=== PATIENT | female | born 1950 | race Caucasian/White ===

== ENCOUNTER → 2017-10-24 | Outpatient (CLI) | payer MEDICARE ==
--- NOTE | 2017-10-25 07:15 | MM ---
Reason for exam: screening (asymptomatic). Last mammogram was performed 1 year and 2 months ago. History: Patient is postmenopausal. Family history of breast cancer in mother at age 93. 2 benign cyst aspirations of the left breast. Benign cyst aspiration of the right breast. Took estrogen for 8 years 2 months beginning at age 55. Took progesterone for 8 years 2 months beginning at age 55. Physical Findings: A clinical breast exam by your physician is recommended on an annual basis and results should be correlated with mammographic findings. MG 3D Screening Mammo W/Cad Bilateral CC and MLO view(s) were taken. Prior study comparison: August 31, 2016, bilateral MG 3d screening mammo w/cad. August 13, 2015, bilateral MG 3d screening mammo w/cad. May 22, 2014, left breast MG diagnostic mammo LT w CAD. The breast tissue is heterogeneously dense. This may lower the sensitivity of mammography. Finding: There are typically benign vascular calcifications in both breasts. There is no discrete abnormality. ASSESSMENT: Benign, BI-RAD 2 RECOMMENDATION: Routine screening mammogram of both breasts in 1 year.
== END ==
LOC: RADMAMWWP 10:04
PROVIDERS: ATTEND Family Medicine
DX: Z12.31 Encounter for screening mammogram for malignant neoplasm of breast (principal)
CPT/HCPCS: 77063; 77067

== ENCOUNTER → 2018-01-12 | Outpatient (CLI) | payer MEDICARE, BC ==
--- NOTE | 2018-01-12 15:11 | MR ---
EXAMINATION TYPE: MR brain wo/w con DATE OF EXAM: 01/12/2018 COMPARISON: 09/01/2015 HISTORY: Abnormal findings on diagnostic imaging CONTRAST: Performed utilizing 6 mL intravenous Gadavist gadolinium contrast. TECHNIQUE: Multiplanar, multiecho imaging on a 3.0 Lakeisha magnet is performed through the brain. Stud y is performed within 24 hours of arrival to the hospital. The craniovertebral junction is normal. The pituitary is normal. Diffusion-weighted imaging is performed. No abnormal hyperintensity is present to suggest an acute i ntracranial infarct or acute ischemic change. There are scattered subcortical white matter changes consistent periventricular white matter changes which are nonspecific but can be related to microvascular ischemic change. These appear similar numbe r although slightly more prominent over the interval. Ventricles and sulci are appropriate for the patient age. No abnormal enhancement is evident. Mucosal thickening is through the bilateral maxillary sinuses. Some mucosal thickening is within ethm oid air cells. Mastoid air cells appear unremarkable. IMPRESSIONS: 1. Slight increase in prominence with a similar number and distribution of deep white matter changes, likely on the basis of chronic white matter ischemic change.
== END ==
LOC: RADMRIMAIN 12:31
PROVIDERS: ATTEND Family Medicine
DX: R90.82 White matter disease, unspecified (principal)
CPT/HCPCS: 82565; 70553; A9581

== ENCOUNTER → 2018-04-26 | Outpatient (CLI) | payer MEDICARE, BC ==
--- NOTE | 2018-04-26 15:38 | XR ---
EXAMINATION TYPE: XR KUB DATE OF EXAM: 04/26/2018 COMPARISON: 07/15/2014 HISTORY: Pain TECHNIQUE: One view abdominal series FINDINGS: The osseous structures are intact. The bowel gas pattern is nonspecific. There is a 1 cm stones within the right renal pelvis. Additional 1 cm stone within the left renal pel vis with adjacent 5 mm calcification. Scoliosis and degenerative change of the spine noted. Calcifications in the pelvis appear vascular. A rthritic change of the hips noted. IMPRESSION: 1. Stable bilateral nephrolithiasis.
== END | disposition home or self-care (01) ==
LOC: RADXRMAIN 15:20
PROVIDERS: ATTEND Urology
DX: N20.0 Calculus of kidney (principal)
CPT/HCPCS: 74018

== ENCOUNTER 2018-08-29 12:28 | Emergency (ER) | payer MEDICARE, BC ==
[2018-08-29] MEDS ORDERED: SODIUM CHLORIDE 0.9% 1,000 ML IV STA (12:42)
--- NOTE | 2018-08-29 12:44 | ED ---
General Adult HPI - General Chief complaint: Abdominal Pain Stated complaint: rt side/abdominal pain Time Seen by Provider: 08/29/18 12:38 Source: patient, RN notes reviewed Mode of arrival: ambulatory Limitations: no limitations - History of Present Illness Initial comments: Patient is a 67-year-old female presented to the emergency room today with a chief complaint of right-sided flank pain that began this morning. Patient does admit that it feels somewhat similar to kidney stone that she's had in the past. She currently rates pain 6/10. Does admit to an episode of nausea vomiting earlier in the day. Denies any other complaints or symptoms at this time. Patient denies any recent fever, chills, shortness of breath, chest pain, back pain, numbness or tingling, headaches or visual changes, or any other complaints. - Related Data Home Medications Medication Instructions Recorded Confirmed Artificial Tears-Hypromellose 1 drop BOTH EYES DAILY 08/29/18 08/29/18 [Artificial Tear Drops] Atorvastatin [Lipitor] 20 mg PO HS 08/29/18 08/29/18 Cholecalciferol [Vitamin D3] 5,000 mg PO DAILY 08/29/18 08/29/18 Citalopram Hydrobromide [CeleXA] 20 mg DENTAL 08/29/18 Ubidecarenone [Co Q-10] 100 mg PO DAILY 08/29/18 08/29/18 Allergies Allergy/AdvReac Type Severity Reaction Status Date / Time Sulfa (Sulfonamide Allergy Rash/Hives Verified 08/29/18 13:12 Antibiotics) Review of Systems ROS Statement: Those systems with pertinent positive or pertinent negative responses have been documented in the HPI. ROS Other: All systems not noted in ROS Statement are negative. Past Medical History Past Medical History: Hypertension History of Any Multi-Drug Resistant Organisms: None Reported Past Surgical History: Bladder Surgery, Joint Replacement, Orthopedic Surgery Past Psychological History: Anxiety, Depression Smoking Status: Never smoker Past Alcohol Use History: Occasional Past Drug Use History: None Reported General Exam - General Exam Comments Initial Comments: General: The patient is awake and alert, in no distress, and does not appear acutely ill. Eye: There is normal conjunctiva bilaterally. No signs of icterus. Ears, nose, mouth and throat: There are moist mucous membranes and no oral lesions. Neck: The neck is supple, there is no tenderness or JVD. Cardiovascular: There is a regular rate and rhythm. No murmur, rub or gallop is appreciated. Respiratory: Lungs are clear to auscultation, respirations are non-labored, breath sounds are equal. No wheezes, stridor, rales, or rhonchi. Gastrointestinal: Soft, non-distended, non-tender abdomen without masses or organomegaly noted. There is no rebound or guarding present. No CVA tenderness. Bowel sounds are unremarkable. Musculoskeletal: Normal ROM, no tenderness. Strength 5/5. Sensation intact. Pulses equal bilaterally 2+. Neurological: A&O x 3. CN II-XII intact, There are no obvious motor or sensory deficits. Coordination appears grossly intact. Speech is normal. Skin: Skin is warm and dry and no rashes or lesions are noted. Psychiatric: Cooperative, appropriate mood & affect, normal judgment. Limitations: no limitations Course Vital Signs 08/29/18 08/29/18 12:30 13:45 Temperature 97.7 F 97.9 F Pulse Rate 78 67 Respiratory 20 16 Rate Blood Pressure 149/87 149/81 O2 Sat by Pulse 98 97 Oximetry Medical Decision Making - Medical Decision Making Patient's labs been reviewed does show 38 red cells. No sign of infection in the urine. Patient's draining blood work unremarkable. Patient's CT abdomen and pelvis does show 1.4 cm UPJ stone on the right. Moderate hydronephrosis. Case discussed with attending physician Dr. Valverde. Patient resting comfortably at this time. No signs of distress. Patient states she does have pain medication at home. She has not needed any medicines here in the emergency room for this and symptoms. Patient will be discharged to follow-up with her urologist tomorrow. She states that she is followed up with Dr. Mehta in the past. - Lab Data Result diagrams: 08/29/18 12:58 08/29/18 12:58 Lab Results 08/29/18 08/29/18 08/29/18 Range/Units 12:58 12:58 12:58 WBC 8.5 (3.8-10.6) k/uL RBC 4.35 (3.80-5.40) m/uL Hgb 13.9 (11.4-16.0) gm/dL Hct 43.0 (34.0-46.0) % MCV 98.9 (80.0-100.0) fL MCH 32.0 (25.0-35.0) pg MCHC 32.4 (31.0-37.0) g/dL RDW 12.4 (11.5-15.5) % Plt Count 209 (150-450) k/uL Neutrophils % 72 % Lymphocytes % 18 % Monocytes % 5 % Eosinophils % 2 % Basophils % 1 % Neutrophils # 6.1 (1.3-7.7) k/uL Lymphocytes # 1.5 (1.0-4.8) k/uL Monocytes # 0.5 (0-1.0) k/uL Eosinophils # 0.2 (0-0.7) k/uL Basophils # 0.1 (0-0.2) k/uL PT (9.0-12.0) sec INR (<1.2) APTT (22.0-30.0) sec Sodium 142 (137-145) mmol/L Potassium 4.1 (3.5-5.1) mmol/L Chloride 108 H (98-107) mmol/L Carbon Dioxide 27 (22-30) mmol/L Anion Gap 7 mmol/L BUN 18 H (7-17) mg/dL Creatinine 0.65 (0.52-1.04) mg/dL Est GFR (CKD-EPI)AfAm >90 (>60 ml/min/1.73 sqM) Est GFR (CKD-EPI)NonAf >90 (>60 ml/min/1.73 sqM) Glucose 106 H (74-99) mg/dL Calcium 9.5 (8.4-10.2) mg/dL Total Bilirubin 0.6 (0.2-1.3) mg/dL AST 33 (14-36) U/L ALT 37 (9-52) U/L Alkaline Phosphatase 72 (38-126) U/L Total Creatine Kinase 62 (30-135) U/L CK-MB (CK-2) 0.7 (0.0-2.4) ng/mL CK-MB (CK-2) Rel Index 1.1 Troponin I <0.012 (0.000-0.034) ng/mL Total Protein 6.7 (6.3-8.2) g/dL Albumin 3.8 (3.5-5.0) g/dL Amylase 57 (30-110) U/L Lipase 97 (23-300) U/L Urine Color Urine Appearance (Clear) Urine pH (5.0-8.0) Ur Specific [place] (1.001-1.035) Urine Protein (Negative) Urine Glucose (UA) (Negative) Urine Ketones (Negative) Urine Blood (Negative) Urine Nitrite (Negative) Urine Bilirubin (Negative) Urine Urobilinogen (<2.0) mg/dL Ur Leukocyte Esterase (Negative) Urine RBC (0-5) /hpf Urine WBC (0-5) /hpf Ur Squamous Epith Cells (0-4) /hpf Urine Mucus (None) /hpf 08/29/18 08/29/18 Range/Units 12:58 14:51 WBC (3.8-10.6) k/uL RBC (3.80-5.40) m/uL Hgb (11.4-16.0) gm/dL Hct (34.0-46.0) % MCV (80.0-100.0) fL MCH (25.0-35.0) pg MCHC (31.0-37.0) g/dL RDW (11.5-15.5) % Plt Count (150-450) k/uL Neutrophils % % Lymphocytes % % Monocytes % % Eosinophils % % Basophils % % Neutrophils # (1.3-7.7) k/uL Lymphocytes # (1.0-4.8) k/uL Monocytes # (0-1.0) k/uL Eosinophils # (0-0.7) k/uL Basophils # (0-0.2) k/uL PT 10.2 (9.0-12.0) sec INR 0.9 (<1.2) APTT 23.9 (22.0-30.0) sec Sodium (137-145) mmol/L Potassium (3.5-5.1) mmol/L Chloride (98-107) mmol/L Carbon Dioxide (22-30) mmol/L Anion Gap mmol/L BUN (7-17) mg/dL Creatinine (0.52-1.04) mg/dL Est GFR (CKD-EPI)AfAm (>60 ml/min/1.73 sqM) Est GFR (CKD-EPI)NonAf (>60 ml/min/1.73 sqM) Glucose (74-99) mg/dL Calcium (8.4-10.2) mg/dL Total Bilirubin (0.2-1.3) mg/dL AST (14-36) U/L ALT (9-52) U/L Alkaline Phosphatase (38-126) U/L Total Creatine Kinase (30-135) U/L CK-MB (CK-2) (0.0-2.4) ng/mL CK-MB (CK-2) Rel Index Troponin I (0.000-0.034) ng/mL Total Protein (6.3-8.2) g/dL Albumin (3.5-5.0) g/dL Amylase (30-110) U/L Lipase (23-300) U/L Urine Color Light Yellow Urine Appearance Clear (Clear) Urine pH 6.5 (5.0-8.0) Ur Specific [place] 1.014 (1.001-1.035) Urine Protein Trace H (Negative) Urine Glucose (UA) Negative (Negative) Urine Ketones Negative (Negative) Urine Blood Moderate H (Negative) Urine Nitrite Negative (Negative) Urine Bilirubin Negative (Negative) Urine Urobilinogen <2.0 (<2.0) mg/dL Ur Leukocyte Esterase Trace H (Negative) Urine RBC 38 H (0-5) /hpf Urine WBC 5 (0-5) /hpf Ur Squamous Epith Cells <1 (0-4) /hpf Urine Mucus Rare H (None) /hpf Disposition Clinical Impression: Kidney stone on right side Disposition: HOME SELF-CARE Condition: Good Instructions: Kidney Stones (ED) Additional Instructions: Please follow-up the urologist tomorrow as discussed. Please return to emergency room if any symptoms increase or worsen or for any other concerns. Is patient prescribed a controlled substance at d/c from ED?: No Referrals: Majo Dickson DO [Primary Care Provider] - 1-2 days Kaveh Mehta MD [STAFF PHYSICIAN] - 1-2 days Time of Disposition: 15:37
--- NOTE | 2018-08-29 13:33 | CT ---
EXAMINATION TYPE: CT abdomen pelvis wo con DATE OF EXAM: 08/29/2018 COMPARISON: 07/15/2014 HISTORY: Right sided flank pain CT DLP: 352.2 mGycm Examination of the solid and hollow viscera is limited given the lack of contrast. FINDINGS: LUNG BASES: No evidence for nodule. No evidence for infiltrate. There is basilar subpleural fibrosis identified. LIVER/GB: The gallbladder is unremarkable. No space-occupying hepatic lesion. PANCREAS: No pancreatic mass identified. No inflammatory process seen. SPLEEN: Splenic granulomas noted. No evidence for splenomegaly. No intrasplenic lesions seen. ADRENALS: No adrenal nodules identified. No evidence for thickening. KIDNEYS: 1.4 cm right UPJ calculus resulting in moderate to severe hydronephrosis. There is a right r enal edema and perinephric stranding. No additional right-sided calculi seen. 1.6 cm nonobstructing c alculus lower pole left kidney as well as an additional 1 cm calculus. No renal lesions detected with certainty. Urinary bladder is unremarkable. BOWEL: Appendix has a normal appearance. No evidence of bowel obstruction. No inflammatory process. Lymph nodes: No evidence for adenopathy greater than 1 cm. Abdominal aorta: Atheromatous changes seen. No evidence for aneurysm. Genital organs: No significant abnormality. Other: Severe degenerative changes lumbar spine. IMPRESSION: 1.1.4 cm right UPJ calculus resulting in moderate to severe hydronephrosis. There is a right renal ed marifer and perinephric stranding. No additional right-sided calculi seen. 2 additional left-sided nonobstructing nephrolithiasis.
[2018-08-29 13:47] VITALS: RESP 16
[2018-08-29 14:20] LABS: Basophils # (A) 0.1 k/uL (0-0.2); Basophils % (A) 1 %; Eosinophils # (A) 0.2 k/uL (0-0.7); Eosinophils % (A) 2 %; HGB 13.9 gm/dL (11.4-16.0); Lymphocytes # (A) 1.5 k/uL (1.0-4.8); Lymphocytes % (A) 18 %; MCHC 32.4 g/dL (31.0-37.0); MCV 98.9 fL (80.0-100.0); Mean Platelet Volume 8.7; Monocytes # (A) 0.5 k/uL (0-1.0); Monocytes % (A) 5 %; Neutrophils # (A) 6.1 k/uL (1.3-7.7); Neutrophils % (A) 72 %; Platelet Count 209 k/uL (150-450); RBC 4.35 m/uL (3.80-5.40); RDW 12.4 % (11.5-15.5); WBC 8.5 k/uL (3.8-10.6)
[2018-08-29 14:29] LABS: INR 0.9 (<1.2); Partial Thromboplastin Time 23.9 sec (22.0-30.0); Prothrombin Time 10.2 sec (9.0-12.0)
[2018-08-29 14:38] LABS: ALT 37 U/L (9-52); AST 33 U/L (14-36); Albumin 3.8 g/dL (3.5-5.0); Alkaline Phosphatase 72 U/L (38-126); Amylase 57 U/L (30-110); Anion Gap 7 mmol/L; Blood Urea Nitrogen 18 mg/dL (7-17); Calcium 9.5 mg/dL (8.4-10.2); Carbon Dioxide 27 mmol/L (22-30); Chloride 108 mmol/L (98-107); Glucose 106 mg/dL (74-99); Lipase 97 U/L (23-300); Potassium 4.1 mmol/L (3.5-5.1); Sodium 142 mmol/L (137-145); Total Bilirubin 0.6 mg/dL (0.2-1.3); Total Protein 6.7 g/dL (6.3-8.2)
[2018-08-29 14:44] LABS: Creatine Kinase 62 U/L (30-135)
[2018-08-29 14:58] LABS: Creatine Kinase MB 0.7 ng/mL (0.0-2.4); Troponin I <0.012 ng/mL (0.000-0.034)
[2018-08-29 15:18] LABS: Appearance,Urine Clear (Clear); Bilirubin,Urine Negative (Negative); Blood,Urine Moderate (Negative); Color,Urine Light Yellow; Glucose,Urine (UA) Negative (Negative); Ketones,Urine Negative (Negative); Leukocyte Esterase,Urine Trace (Negative); Mucus,Urine Rare /hpf; Nitrite,Urine Negative (Negative); PH, Urine 6.5 (5.0-8.0); Protein,Urine Trace (Negative); RBC,Urine 38 /hpf (0-5); Specific Gravity,Urine 1.014 (1.001-1.035); Squamous Epithelial Cell,Urine <1 /hpf (0-4); Urobilinogen,Urine <2.0 mg/dL (<2.0); WBC,Urine 5 /hpf (0-5)
[2018-08-29 15:45] VITALS: BP 151/78; PULSE 68
[2018-08-29 15:48] VITALS: TEMP 98.4
== END 2018-08-29 15:50 | disposition home or self-care (01) ==
LOC: EC 12:28
DX: N13.2 Hydronephrosis with renal and ureteral calculous obstruction (principal); I10 Essential (primary) hypertension; F41.9 Anxiety disorder, unspecified; F32.9 Major depressive disorder, single episode, unspecified; Z79.899 Other long term (current) drug therapy; Z88.2 Allergy status to sulfonamides
CPT/HCPCS: 36415; 74176; 80053; 81001; 82150; 82550; 82553; 83690; 84484; 85025; 85610; 85730; 93005; 96360; 96361; 99284

== ENCOUNTER 2018-09-10 06:23 | Day surgery (SDC) | payer MEDICARE, BC ==
--- NOTE | 2018-08-30 20:09 | P.GSHP ---
History of Present Illness H&P Date: 08/30/18 Chief Complaint: Right renal calculus The patient is a 67-year-old female with a history of a large right renal calculus which was first noted as far back as 2010. The calculus was located in the upper pole of the right kidney and had grown only minimally since then. The patient had some transient right flank pain this summer but a KUB in 04/2018 showed no significant change in the size or location of the stone compared with the previous images. I discussed treatment options with the patient at that time and the patient elected on further observation. She developed severe right flank pain associated with nausea on 08/29 and was evaluated in the [facility] emergency room. Noncontrast CT scan of the abdomen and pelvis confirmed a 10 x 12 x 14 mm calculus which was located in the renal pelvis near the ureteropelvic junction. The patient's pain improved and she was discharged on Tylenol 3 for pain control. She was seen by me in the office on 08/30. I rediscussed treatment options including further observation, ESWL or percutaneous nephrostolithotomy. The patient has elected to proceed with ESWL and is admitted for this purpose. She also has a 14 mm nonobstructive calculus in the lower pole of the left kidney. - Constitutional Constitutional: Denies chills, Denies fever - Cardiovascular Cardiovascular: Denies chest pain, Denies palpitations, Denies shortness of breath - Respiratory Respiratory: Denies cough, Denies wheezing - Gastrointestinal Gastrointestinal: Reports as per HPI - Genitourinary (Female) Genitourinary: Denies dysuria, Denies hematuria Past Medical History Past Medical History: Hypertension History of Any Multi-Drug Resistant Organisms: None Reported Past Surgical History: Bladder Surgery (Anterior urethropexy and possible mid urethral sling), Joint Replacement (Bilateral total knee arthroplasty), Orthopedic Surgery Past Psychological History: Anxiety, Depression Smoking Status: Never smoker Past Alcohol Use History: Occasional Past Drug Use History: None Reported Medications and Allergies Home Medications Medication Instructions Recorded Confirmed Type Artificial Tears-Hypromellose 1 drop BOTH EYES DAILY 08/29/18 08/29/18 History [Artificial Tear Drops] Atorvastatin [Lipitor] 20 mg PO HS 08/29/18 08/29/18 History Cholecalciferol [Vitamin D3] 5,000 mg PO DAILY 08/29/18 08/29/18 History Citalopram Hydrobromide [CeleXA] 20 mg DENTAL 08/29/18 History Ubidecarenone [Co Q-10] 100 mg PO DAILY 08/29/18 08/29/18 History Allergies Allergy/AdvReac Type Severity Reaction Status Date / Time Sulfa (Sulfonamide Allergy Rash/Hives Verified 08/29/18 13:12 Antibiotics) Surgical - Exam - General well developed, well nourished, no distress - ENT no hearing loss - Neck no masses, no lymphadectomy - Respiratory normal respiratory effort, clear to auscultation - Cardiovascular Rhythm: regular Abnormal Heart Sounds: no systolic murmur, no diastolic murmur - Abdomen Abdomen: soft, no organomegaly - Neurologic no memory loss Assessment and Plan (1) Kidney stone on right side Narrative/Plan: The patient will undergo extracorporeal shockwave lithotripsy of her right renal calculus performed under intravenous sedation by Dr. Herron. She is aware of the operative risks which include anesthesia, hematuria, intrarenal or perinephric bleeding, inability to fragment the calculus and ureteral obstruction from calculus fragments which require a secondary procedure. Status: Acute Code(s): N20.0 - CALCULUS OF KIDNEY SNOMED Code(s): 40052541
[2018-09-05 10:50] VITALS: BMI 21.2
[~2018-09-10 06:23] MED LIST: LACTATED RINGERS 1,000 ML IV SCH; Pre Op ABX Message 1 EACH MISC MISCELLANE ONE
--- NOTE | 2018-09-10 06:48 | XR ---
EXAMINATION TYPE: XR KUB DATE OF EXAM: 09/10/2018 COMPARISON: 08/29/2018 CT scan. HISTORY: Renal stone preop TECHNIQUE: Single view FINDINGS: There is a 1.5 cm calcification over the right upper quadrant at is stone in the proximal r ight ureter unchanged compared to CT scan 08/29/2018. There is 1.5 cm irregular calcification over the lower pole left kidney unchanged compared to CT scan 08/29/2018. There is no sign of intestinal obstr uction or pneumoperitoneum. Fecal pattern is normal. IMPRESSION: Bilateral large renal calculi unchanged.
[2018-09-10 07:01] VITALS: RESP 16; TEMP 98.2
[2018-09-10] MEDS ORDERED: LIDOCAINE 1% 20 ML VIAL (10MG/ML) FOR IV START INTRADERMA ONE (07:03)
[2018-09-10] MEDS ORDERED: KETAMINE 10 MG/ML 20 ML VIAL ONE (07:38)
[2018-09-10] MEDS ORDERED: PROPOFOL 10 MG/ML 20 ML VIAL IV ONE (07:38)
[2018-09-10] MEDS ORDERED: GLYCOPYRROLATE 0.2 MG/ML 2 ML VIAL ONE (07:38)
[2018-09-10] MEDS ORDERED: fentaNYL (PF) 50 MCG/ML 2 ML AMP ONE (07:38)
[2018-09-10] MEDS ORDERED: MIDAZOLAM 2 MG/2 ML VIAL ONE (07:38)
--- NOTE | 2018-09-10 08:27 | P.OP ---
Date of Procedure: 09/10/18 Preoperative Diagnosis: Right renal calculus Postoperative Diagnosis: Same Procedure(s) Performed: Right extracorporal shockwave lithotripsy (ESWL) Anesthesia: MAC Surgeon: Abdoul Herron Estimated Blood Loss (ml): 0 IV fluids (ml): 600 Pathology: none sent Condition: stable Disposition: PACU Indications for Procedure: The patient is a 67-year-old woman with recent right flank pain. Non-contrast CT scan of the abdomen and pelvis confirmed a 10 x 12 x 14 mm calculus which was located in the renal pelvis near the ureteropelvic junction. She has elected to undergo ESWL and comes for this reason. Operative Findings: The calculus appears to fragment. Description of Procedure: The patient was taken to the operating room and placed on the Dornier Compact Delta II lithotripter in the supine position. The calculus was seen on biplanar fluoroscopy. Once the patient was properly positioned and sedated, lithotripsy was performed. The energy level was gradually increased per protocol, to an energy level of 5. After 200 shocks were administered, a 2 minute pause was instituted per protocol. A total of 2500 shocks were given at a rate of 80 shocks per minute. Fluoroscopy was utilized at a minimum to ensure proper positioning and determine the treatment status. The appearance of the calculus appeared to change, suggesting fragmentation had occurred. The patient tolerated the procedure well was taken to the recovery room in stable condition. Instructions were given to strain the urine, and the patient will follow-up within one week.
[2018-09-10 09:04] VITALS: BP 149/80; PULSE 70
== END 2018-09-10 09:46 | disposition home or self-care (01) ==
LOC: ORWHC2ENDO 06:23
PROVIDERS: ATTEND Urology
DX: N20.0 Calculus of kidney (principal); Z87.442 Personal history of urinary calculi; I10 Essential (primary) hypertension; F41.9 Anxiety disorder, unspecified; F32.9 Major depressive disorder, single episode, unspecified; K21.9 Gastro-esophageal reflux disease without esophagitis; E78.5 Hyperlipidemia, unspecified; Z98.890 Other specified postprocedural states; Z88.2 Allergy status to sulfonamides; Z79.891 Long term (current) use of opiate analgesic; Z79.899 Other long term (current) drug therapy
CPT/HCPCS: 74018; 50590; J2250; J3010; J2704

== ENCOUNTER → 2018-09-13 | Outpatient (CLI) | payer MEDICARE, BC ==
--- NOTE | 2018-09-13 16:05 | XR ---
EXAMINATION TYPE: XR KUB DATE OF EXAM: 09/13/2018 COMPARISON: 09/10/2018 HISTORY: Renal stone TECHNIQUE: One view abdominal series FINDINGS: Degenerative change with curvature of the spine noted. Bowel gas pattern nonspecific. Calcifications the pelvis are stable and likely vascular. Left kidney: There is a 1.6 cm large calculus. Right kidney: A 1.3 cm right renal calcification. No calcifications are seen along the right paraspin al line. As noted above calcifications in the pelvis appear stable. Arthropathy of the hips. IMPRESSION: 1. Large left renal calculus measuring 1.6 cm 2. Right renal calculus is partially obscured by bowel content. Appears wet less well-defined and raz sures 1.3 cm. Adjacent to millimeter fragment suspected.
== END | disposition home or self-care (01) ==
LOC: RADXRMAIN 14:59
PROVIDERS: ATTEND Urology
DX: N20.0 Calculus of kidney (principal)
CPT/HCPCS: 74018

== ENCOUNTER → 2018-10-26 | Outpatient (CLI) | payer MEDICARE, BC ==
--- NOTE | 2018-10-26 11:53 | XR ---
Abdomen HISTORY: Renal calculus Single frontal view of the abdomen correlated to prior abdomen 09/13/2018 Overlying bowel gas may be obscured detail. The left-sided renal calcification shows a stable appeara nce. Right-sided renal calcification is irregular and may be smaller, correlate for history of right lithotripsy. Lung bases not included on exam. Scoliotic curvature present in the spine, there is dege nerative disc disease in the lumbar spine. No evident bowel obstruction or pneumoperitoneum. Retained fecal debris is noted, correlate for fecal stasis. IMPRESSION: There may be post lithotripsy findings of the right kidney. Retained stone is present obs cured by overlying bowel gas.
== END ==
LOC: RADXRMAIN 10:49
PROVIDERS: ATTEND Urology
DX: N20.0 Calculus of kidney (principal)
CPT/HCPCS: 74018

== ENCOUNTER → 2018-12-06 | Outpatient (CLI) | payer MEDICARE, BC ==
--- NOTE | 2018-12-07 10:02 | MM ---
Reason for exam: screening (asymptomatic). Last mammogram was performed 1 year and 1 month ago. History: Patient is postmenopausal. Family history of breast cancer in mother at age 93. 2 benign cyst aspirations of the left breast. Benign cyst aspiration of the right breast. Took estrogen for 8 years 2 months beginning at age 55. Took progesterone for 8 years 2 months beginning at age 55. Physical Findings: A clinical breast exam by your physician is recommended on an annual basis and results should be correlated with mammographic findings. MG 3D Screening Mammo W/Cad Bilateral CC and MLO view(s) were taken. Prior study comparison: October 24, 2017, bilateral MG 3d screening mammo w/cad. August 31, 2016, bilateral MG 3d screening mammo w/cad. The breast tissue is heterogeneously dense. This may lower the sensitivity of mammography. No significant changes when compared with prior studies. ASSESSMENT: Benign, BI-RAD 2 RECOMMENDATION: Routine screening mammogram of both breasts in 1 year.
== END | disposition home or self-care (01) ==
LOC: RADMAMWWP 09:21
PROVIDERS: ATTEND Family Medicine
DX: Z12.31 Encounter for screening mammogram for malignant neoplasm of breast (principal)
CPT/HCPCS: 77063; 77067

== ENCOUNTER → 2020-06-23 | Outpatient (CLI) | payer MEDICARE, BC ==
[2020-06-23 17:26] LABS: T4, Free (Free Thyroxine) 0.9 ng/dL (0.80-1.80)
== END | disposition home or self-care (01) ==
LOC: LABWHC1 07:55
PROVIDERS: ATTEND Family Medicine
DX: F41.8 Other specified anxiety disorders (principal); T73.3XXA Exhaustion due to excessive exertion, initial encounter; L30.9 Dermatitis, unspecified
CPT/HCPCS: 36415; 82533; 82626; 84439; 84481

== ENCOUNTER → 2020-07-21 | Outpatient (CLI) | payer MEDICARE, BC ==
--- NOTE | 2020-07-22 11:13 | P.STRESS ---
- Stress Test Note Stress Test Results/Findings: Exam Performed: stress test Exam Date: 07/21/20 Reason for Exam: FATIGUE Height: 5 ft 5 in Weight: 128 kg Protocol: BALA Stage: 2 Duration of Exercise: 5:00 Resting Heart Rate: 63 Resting Blood Pressure: 155/92 Maximum Achieved Heart Rate: 142 Maximum Achieved Blood Pressure: 200/73 85% PMHR: 127 100% PMHR: 149 METS: 7.0 Technologist Comment: Stress Test Results/Findings: This is a 69-year-old female with history of hypercholesterolemia, palpitations being evaluated for cardiac status. Patient also has family history of ischemic heart disease. Stress data. Baseline EKG showed sinus rhythm with normal WI interval, QRS duration. Blood pressure at rest is 155/92 with pulse rate of 63. Patient walked on the Bala protocol for 5 minutes achieving a maximum heart rate of 142 with a blood pressure 200/73. EKGs taken during and after exercise did not reveal any significant changes from the baseline. Final impression: #1. Negative stress test #2. The patient did not experience any chest pain #3. Patient complained of shortness of breath. #4. No arrhythmias noted
--- NOTE | 2020-07-22 13:12 | EST ---
Stress Test Results/Findings: Exam Performed: stress test Exam Date: 07/21/20 Reason for Exam: FATIGUE Height: 5 ft 5 in Weight: 128 kg Protocol: BALA Stage: 2 Duration of Exercise: 5:00 Resting Heart Rate: 63 Resting Blood Pressure: 155/92 Maximum Achieved Heart Rate: 142 Maximum Achieved Blood Pressure: 200/73 85% PMHR: 127 100% PMHR: 149 METS: 7.0 Technologist Comment: Stress Test Results/Findings: This is a 69-year-old female with history of hypercholesterolemia, palpitations being evaluated for cardiac status. Patient also has family history of ischemic heart disease. Stress data. Baseline EKG showed sinus rhythm with normal AK interval, QRS duration. Blood pressure at rest is 155/92 with pulse rate of 63. Patient walked on the Bala protocol for 5 minutes achieving a maximum heart rate of 142 with a blood pressure 200/73. EKGs taken during and after exercise did not reveal any significant changes from the baseline. Final impression: #1. Negative stress test #2. The patient did not experience any chest pain #3. Patient complained of shortness of breath. #4. No arrhythmias noted MTDD
== END | disposition home or self-care (01) ==
LOC: RADNMMAIN 10:53
PROVIDERS: ATTEND Family Medicine
DX: R06.02 Shortness of breath (principal)
CPT/HCPCS: 93017

== ENCOUNTER → 2020-12-18 | Outpatient (CLI) | payer MEDICARE ==
--- NOTE | 2020-12-19 22:14 | CT ---
EXAMINATION TYPE: CT abdomen pelvis wo con DATE OF EXAM: 12/18/2020 COMPARISON: 08/29/2018. HISTORY: Bilateral flank pain. CT DLP: 255.1 mGycm Automated exposure control for dose reduction was used. TECHNIQUE: Helical acquisition of images was performed from the lung bases through the pelvis. FINDINGS: LUNG BASES: Moderate interstitial disease with associated chronic mild opacities. LIVER/GB: No significant abnormality is appreciated. Cholecystectomy. PANCREAS: No significant abnormality is seen. SPLEEN: No acute abnormality is seen. Scattered several small splenic and a few punctate hepatic lucho gn calcifications, in keeping with prior granulomatous disease. ADRENALS: No significant abnormality is seen. KIDNEYS: Redemonstrated 2 large nonobstructing left lower pole renal calculi with the larger measurin g 13 mm. Also 2 nonobstructing large right renal calculi in the lower pole and pelvis, measuring up t o 7 mm. The right lower pole renal calculus is new. Right renal pelvic ectasia without overt bilatera l hydronephrosis. FREE AIR: No free air is visualized RETROPERITONEAL ADENOPATHY: None visualized REPRODUCTIVE ORGANS: No significant abnormality is seen URINARY BLADDER: No significant abnormality is seen. PELVIC ADENOPATHY: None visualized. OSSEOUS STRUCTURES: No acute abnormality is seen. Moderate lumbar spondylosis. BOWEL: No significant abnormality is seen. OTHER: Pelvic phleboliths are seen. IMPRESSION: NONOBSTRUCTING BILATERAL RENAL CALCULI TO INCLUDE NEW CALCULUS ON THE RIGHT. RIGHT RENAL PELVIC ECTASIA. CHRONIC INTERSTITIAL DISEASE.
== END | disposition home or self-care (01) ==
LOC: RADCTMAIN 18:29
PROVIDERS: ATTEND Urology
DX: N20.0 Calculus of kidney (principal)
CPT/HCPCS: 74176

== ENCOUNTER → 2021-06-01 | Outpatient (CLI) | payer MEDICARE ==
--- NOTE | 2021-06-03 12:13 | MM ---
Reason for exam: screening (asymptomatic). Last mammogram was performed 2 years and 6 months ago. History: Patient is postmenopausal. Family history of breast cancer in mother at age 93. 2 benign cyst aspirations of the left breast. Benign cyst aspiration of the right breast. Took hormonal contraceptives for 15 years. Took estrogen for 8 years 2 months beginning at age 55. Took progesterone for 8 years 2 months beginning at age 55. Physical Findings: A clinical breast exam by your physician is recommended on an annual basis and results should be correlated with mammographic findings. MG 3D Screening Mammo W/Cad Bilateral CC and MLO view(s) were taken. Prior study comparison: December 06, 2018, bilateral MG 3d screening mammo w/cad. October 24, 2017, bilateral MG 3d screening mammo w/cad. The breast tissue is heterogeneously dense. This may lower the sensitivity of mammography. There are benign appearing vascular calcifications bilaterally. No significant changes when compared with prior studies. ASSESSMENT: Benign, BI-RAD 2 RECOMMENDATION: Routine screening mammogram of both breasts in 1 year.
== END | disposition home or self-care (01) ==
LOC: RADMAMWWP 13:28
PROVIDERS: ATTEND Family Medicine
DX: Z12.31 Encounter for screening mammogram for malignant neoplasm of breast (principal)
CPT/HCPCS: 77063; 77067

== ENCOUNTER → 2021-07-05 | Outpatient (CLI) | payer MEDICARE ==
[2021-07-05 12:52] LABS: Basophils # (A) 0.1 k/uL (0-0.2); Basophils % (A) 1 %; Eosinophils # (A) 0.2 k/uL (0-0.7); Eosinophils % (A) 3 %; HCT 41.7 % (34.0-46.0); HGB 13.9 gm/dL (11.4-16.0); Lymphocytes # (A) 2.2 k/uL (1.0-4.8); Lymphocytes % (A) 35 %; MCH 33.7 pg (25.0-35.0); MCHC 33.4 g/dL (31.0-37.0); MCV 100.8 fL (80.0-100.0); Mean Platelet Volume 9.5; Monocytes # (A) 0.4 k/uL (0-1.0); Monocytes % (A) 6 %; Neutrophils # (A) 3.5 k/uL (1.3-7.7); Neutrophils % (A) 54 %; Platelet Count 204 k/uL (150-450); RBC 4.13 m/uL (3.80-5.40); RDW 11.6 % (11.5-15.5); WBC 6.4 k/uL (3.8-10.6)
[2021-07-05 13:09] LABS: Appearance,Urine Clear (Clear); Bacteria,Urine Rare /hpf; Bilirubin,Urine Negative (Negative); Blood,Urine Small (Negative); Color,Urine Yellow; Glucose,Urine (UA) Negative (Negative); Ketones,Urine Negative (Negative); Leukocyte Esterase,Urine Trace (Negative); Mucus,Urine Rare /hpf; Nitrite,Urine Negative (Negative); PH, Urine 6.5 (5.0-8.0); Protein,Urine Trace (Negative); RBC,Urine 10 /hpf (0-5); Specific Gravity,Urine 1.021 (1.001-1.035); Squamous Epithelial Cell,Urine <1 /hpf (0-4); Urobilinogen,Urine <2.0 mg/dL (<2.0); WBC,Urine 1 /hpf (0-5)
[2021-07-05 13:12] LABS: African American GFR (CKD) >90 (>60 ml/min/1.73 sqM); Anion Gap 7 mmol/L; Blood Urea Nitrogen 19 mg/dL (7-17); Calcium 9.5 mg/dL (8.4-10.2); Carbon Dioxide 26 mmol/L (22-30); Chloride 105 mmol/L (98-107); Glucose 95 mg/dL (74-99); Non-African American GFR(CKD) 90 (>60 ml/min/1.73 sqM); Potassium 4.4 mmol/L (3.5-5.1); Sodium 138 mmol/L (137-145)
== END | disposition home or self-care (01) ==
LOC: LABPAT 11:01
PROVIDERS: ATTEND Urology
DX: Z01.812 Encounter for preprocedural laboratory examination (principal); N20.0 Calculus of kidney
CPT/HCPCS: 36415; 80048; 81001; 85025; 87086

== ENCOUNTER 2021-07-12 09:25 | Day surgery (SDC) | payer MEDICARE, BC ==
[2021-07-08 13:56] VITALS: BMI 21.2
[~2021-07-12 09:25] MED LIST changes: +DEXAMETHASONE SOD PHOSPHATE 4 MG/ML 1 ML VIAL IV ONE; +HYDROmorphone 0.5 MG/0.5 ML SYRINGE IVP PRN; -LACTATED RINGERS 1,000 ML IV SCH; +LIDOCAINE 1% (10MG/ML) FOR IV START INTRADERMA PRN; +MIDAZOLAM 2 MG/2 ML VIAL IV PRN; +ONDANSETRON 4 MG/2 ML VIAL IVP ONE; -Pre Op ABX Message 1 EACH MISC MISCELLANE ONE
--- NOTE | 2021-07-12 10:03 | XR ---
EXAMINATION TYPE: XR KUB DATE OF EXAM: 07/12/2021 COMPARISON: 09/13/2018 HISTORY: Preop TECHNIQUE: One view abdominal series FINDINGS: The osseous structures are intact. The bowel gas pattern is nonspecific. There is a large left renal pelvic calcification measuring 1.7 cm. There are 2 lower pole right renal calcifications measuring 6 and 8 mm. Surgical clips right upper quadrant. Scoliosis with degenerative change of the spine. Arth ropathy of the hips. Vascular calcifications in the pelvis. IMPRESSION: 1. Nonspecific abdomen. Bilateral nephrolithiasis.
[2021-07-12] MEDS: LACTATED RINGERS 1,000 ML IV SCH (10:50)
[2021-07-12] MEDS ORDERED: MIDAZOLAM 2 MG/2 ML VIAL IVP ONE (11:23)
--- NOTE | 2021-07-12 12:17 | P.HPIHPCON ---
History of Present Illness H&P Date: 07/12/21 This is a 70-year-old female history of a left-sided lower pole renal stone. Stone burden is greater than 2 cm. She symptomatic from her stone. Discussed with her given the location of her stone the preferred approach would be a PCNL, discussed the option of a staged ureteroscopy versus ESWL, but discussed that her stone clearance is significantly lower with those two approaces. She agreed to proceed with PCNL. Discussed the risk which includes but not limited to bleeding, infection, injury to the kidney, injury to ureter. Discussed also potential injury to nearby organs which includes but not limited to bowel, spleen, lung. Discussed the potential of persistent pain even with the removal of the stone. Discussed also the potential of needing additional procedures in the future. She understood all the risk and agreed to proceed with left-sided PCNL Consent for Procedure: I have explained the operation/procedure to the patient, including the risks, benefits, side effects, alternative therapies (including not receiving the proposed treatment or service), the likelihood of the patient achieving his/her goals, and potential recuperation problems for the procedure/sedation/analgesia, as well as any blood products, if indicated. I also explained to the patient the risks, benefits and side effects of the alternatives, as well as the risks related to not receiving the proposed procedure, care, treatment, or services. Past Medical History Past Medical History: Hyperlipidemia Additional Past Medical History / Comment(s): kidney stones, adrenal insufficiency dx. 15 years ago. hx hepatitis as child (unknown type). hx vertigo. History of Any Multi-Drug Resistant Organisms: None Reported Past Surgical History: Bladder Surgery, Joint Replacement, Orthopedic Surgery Additional Past Surgical History / Comment(s): janet knee replacement, bladder sling, Lithotrispy, cystoscopy, colonoscopy. Past Anesthesia/Blood Transfusion Reactions: No Reported Reaction Additional Past Anesthesia/Blood Transfusion Reaction / Comment(s): hx vertigo Smoking Status: Never smoker - Past Family History Mother Family Medical History: Cancer Additional Family Medical History / Comment(s): Lymphoma Medications and Allergies Home Medications Medication Instructions Recorded Confirmed Type Artificial Tears-Hypromellose 1 drop BOTH EYES DAILY 08/29/18 07/08/21 History [Artificial Tear Drops] Atorvastatin [Lipitor] 20 mg PO HS 08/29/18 07/08/21 History Cholecalciferol [Vitamin D3] 1,000 unit PO DAILY 08/29/18 07/08/21 History Citalopram Hydrobromide [CeleXA] 10 mg PO DAILY 08/29/18 07/08/21 History Ubidecarenone [Co Q-10] 100 mg PO DAILY 08/29/18 07/08/21 History Holy Basil Oil 1 dose PO DAILY 09/05/18 07/08/21 History Loperamide [Imodium] 2 mg PO PRN 07/12/21 History Allergies Allergy/AdvReac Type Severity Reaction Status Date / Time Sulfa (Sulfonamide Allergy Rash/Hives Verified 07/08/21 13:31 Antibiotics) Surgical - Exam Vital Signs Temp Pulse Resp BP Pulse Ox 97 F L 68 20 119/60 98 07/12/21 10:09 07/12/21 10:09 07/12/21 10:09 07/12/21 10:09 07/12/21 10:09 - General no distress, moderate pain - Eyes PERRL, normal ocular movement - ENT normal nares, normal mucosa - Respiratory normal expansion, normal respiratory effort - Abdomen Abdomen: soft, non tender - Psychiatric oriented to time, oriented to person, oriented to place Assessment and Plan Assessment: OR for left-sided PCNL
[2021-07-12] MEDS ORDERED: MIDAZOLAM 2 MG/2 ML VIAL ONE (12:30)
[2021-07-12] MEDS ORDERED: LIDOCAINE 1% INJ 10MG/ML (20 ML MDV) ONE (12:30)
[2021-07-12] MEDS ORDERED: GLYCOPYRROLATE 0.2 MG/ML 2 ML VIAL ONE (12:30)
[2021-07-12] MEDS ORDERED: PROPOFOL 10 MG/ML 20 ML VIAL IV ONE (12:30)
[2021-07-12] MEDS ORDERED: ePHEDrine SULFATE/0.9% NACL/PF 50 MG/5 ML SYRINGE IV ONE (12:30)
[2021-07-12] MEDS ORDERED: fentaNYL (PF) 50 MCG/ML 2 ML AMP ONE (12:30)
[2021-07-12] MEDS ORDERED: PHENYLEPHRINE-0.9% NACL SYG 1,000 MCG/10 ML SYRINGE ONE (12:30)
[2021-07-12] MEDS ORDERED: ROCURONIUM 10 MG/ML (5 ML VIAL) IV ONE (12:30)
[2021-07-12] MEDS ORDERED: NEOSTIGMINE 1 MG/ML 10 ML VIAL ONE (12:30)
[2021-07-12] MEDS ORDERED: SUCCINYLCHOLINE CHLORIDE 100 MG/5 ML SYR IV ONE (12:30)
[2021-07-12] MEDS ORDERED: IOPAMIDOL-370 50ML BTL IRRIGATION ONE (12:44)
[2021-07-12] MEDS ORDERED: LACTATED RINGERS 1,000 ML IV ONE (13:15)
[2021-07-12] MEDS ORDERED: ONDANSETRON 4 MG/2 ML VIAL IVP PRN (15:14)
[2021-07-12] MEDS ORDERED: MAG HYDROX/AL HYDROX/SIMETH 30 ML CUP PO PRN (15:14)
--- NOTE | 2021-07-12 15:14 | P.OP ---
Date of Procedure: 07/12/21 Preoperative Diagnosis: Left-sided renal stone Postoperative Diagnosis: Same Procedure(s) Performed: Cystoscopy, left sided ureteral catherization, nephroscopy, attempted PCNL and nephrostomy tube placement. Implants: None Anesthesia: ROBINA Surgeon: Anthony Almanza Indications for Procedure: This is a 70-year-old female history of a left-sided lower pole renal stone. Stone burden is greater than 2 cm. She symptomatic from her stone. Discussed with her given the location of her stone the preferred approach would be a PCNL, discussed the option of a staged ureteroscopy versus ESWL, but discussed that her stone clearance is significantly lower with those two approaces. She agreed to proceed with PCNL. Discussed the risk which includes but not limited to bleeding, infection, injury to the kidney, injury to ureter. Discussed also potential injury to nearby organs which includes but not limited to bowel, spleen, lung. Discussed the potential of persistent pain even with the removal of the stone. Discussed also the potential of needing additional procedures in the future. She understood all the risk and agreed to proceed with left-sided PCNL Description of Procedure: Patient was brought to the operating room, general anesthesia was induced. She was placed in a frog leg position on the stretcher. Cystoscopy fitted with a 21-Pakistani sheath was inserted per urethra, cystoscopy was performed showed no abnormality within the bladder. Attention was then carried to the left ureteral orifice which was intubated 6-Pakistani occlusion balloon catheter. a 16 fr garsia catheter was placed. At this time the patient was placed in prone position. She was prepped and draped in sterile fashion. Initial access was obtained in the mid calyx by Dr. Blank, please see his dictation for that portion of the op note. After to wire was advanced down the ureter, a nephrostomy balloon dilator was passed over the stiff wire under fluoroscopy. The area was dilated, next 30-Pakistani access sheath was passed over the balloon dilator. The nephroscope was advanced through the access sheath, renoscopy was performed, attempted to visualize the stone was unsuccessful. The UPJ could be visualized, but multiple attempts were made to identify the stone but was unsuccessful. At this time a decision was made to proceed with a second access. A second access was obtained in the lower pole by Dr. Blank. Next the axis was dilated using the nephrostomy balloon dilator, and a 30-Pakistani access sheath was passed over the wire. Next the nephroscope was advanced through the access sheath, renoscopy was performed to again I was not able to visualize the stone through the second access, the stone could be seen on fluoroscopy multiple attempts were made to visualize the stone but was unsuccessful. At this time the patient was hypotensive. Given this finding decision was made to abort the surgery. A 10- Pakistani nephrostomy tube was placed over the wire through the lower pole axis, antegrade nephrostogram was performed which showed contrast going down the ureter, and there was no evidence of contrast extravasation. The nephrostomy balloon was secured to the skin using 2-0 silk, the second access was closed using 4-0 Vicryl. The patient was awakened from anesthesia and taken to recovery in stable condition, upon aborting the procedure the patient blood pressure was stable
[2021-07-12] MEDS ORDERED: MORPHINE SULFATE 4 MG/ML SYRINGE IVP PRN (15:16)
--- NOTE | 2021-07-12 15:21 | XR ---
EXAMINATION TYPE: XR chest 1V portable DATE OF EXAM: 07/12/2021 HISTORY: check for hemothorax COMPARISON: None. TECHNIQUE: Single view of the chest is submitted. FINDINGS: Demonstrated are scattered senescent parenchymal change. Left-sided pleural effusion and underlying atelectasis or infiltrate moderate in size. No pneumothora x seen. The heart is stable. Hilar and mediastinal structures are within normal limits. Degenerative changes are seen of the dorsal spine. IMPRESSION: 1. Left-sided pleural effusion and underlying atelectasis or infiltrate moderate in size. No pneumot horax seen.
[2021-07-12] MEDS: KETOROLAC 15 MG/ML 1 ML VIAL IVP SCH ×2 (16:31→22:54)
--- NOTE | 2021-07-12 16:34 | FL ---
EXAMINATION TYPE: FL Perc Nephrostomy New Access DATE OF EXAM: 07/12/2021 COMPARISON: NONE HISTORY: Left renal stone Procedure had been discussed with the patient by Dr. Bravo, risks, benefits, alternatives, were dis cussed and any questions were answered. Informed consent was obtained. The patient was in a semipro ne position prepped and draped on the OR table in the usual sterile fashion. Utilizing a 15 cm lengt h Chiba needle a single pass was made into a mid pole posterior calyx under fluoroscopic guidance. Ob lique image was obtained documenting peripheral access of the calyx. An 0.018 guidewire is passed thr ough the needle and there was placement of a 6-Pashto catheter sheath system. There was conversion t o a 0.035 system was performed with passage of a guidewire into the ureter utilizing a directional c atheter. A second safety wire was placed. Remaining portion of procedure performed by Dr Almanza. S econd access route was achieved and the needle was placed within the posterior lower pole calyx. The needle contacted the peripheral margin of the stone and the guidewire was manipulated across the ston e and into the renal pelvis and subsequently into the ureter. Conversion to 0.035 system and placemen t of a guidewire within the distal ureter. Approximately 12 minutes and 44 seconds of fluoroscopy was provided. IMPRESSION: 1. Successful intraoperative left nephrostomy prior to nephrolithotomy.
[2021-07-12] MEDS: HEPARIN SODIUM,PORCINE/PF 5,000 UNIT/0.5 ML SYRINGE SQ SCH ×2 (18:17→22:55)
[2021-07-12] MEDS: ACETAMINOPHEN TAB 325 MG TAB PO PRN (18:24)
[2021-07-12] MEDS: DEXTROSE 5%-0.45% NACL 1,000 ML IV SCH (19:58)
[2021-07-12] MEDS ORDERED: ATORVASTATIN 20 MG TAB PO SCH (21:00)
[2021-07-13] MEDS: DEXTROSE 5%-0.45% NACL 1,000 ML IV SCH (03:40)
[2021-07-13] MEDS: ACETAMINOPHEN TAB 325 MG TAB PO PRN ×2 (04:14→14:41)
[2021-07-13] MEDS: KETOROLAC 15 MG/ML 1 ML VIAL IVP SCH ×2 (05:02→12:36)
[2021-07-13 06:33] LABS: HCT 31.7 % (34.0-46.0); MCHC 33.1 g/dL (31.0-37.0); MCV 99.5 fL (80.0-100.0); Mean Platelet Volume 9.8; Platelet Count 173 k/uL (150-450); RBC 3.19 m/uL (3.80-5.40); RDW 12.2 % (11.5-15.5); WBC 10.8 k/uL (3.8-10.6)
[2021-07-13 06:41] LABS: HGB 10.5 gm/dL (11.4-16.0)
[2021-07-13] MEDS: LACTATED RINGERS 1,000 ML IV SCH (07:02)
[2021-07-13] MEDS: HEPARIN SODIUM,PORCINE/PF 5,000 UNIT/0.5 ML SYRINGE SQ SCH (08:28)
--- NOTE | 2021-07-13 08:41 | XR ---
EXAMINATION TYPE: XR chest 1V portable DATE OF EXAM: 07/13/2021 COMPARISON: Chest x-ray 07/12/2021 HISTORY: Chest pain TECHNIQUE: Single frontal view of the chest is obtained. FINDINGS: Patchy basilar density is present greater on the left, interval improved visualization of left hemidiaphragm. There is no evident pneumothorax. Cardiac mediastinal silhouette is stable. Aorta is dense. Left-sided nephrostomy tube is noted. IMPRESSION: There is improvement in aeration at the left lung base.
[2021-07-13] MEDS ORDERED: CITALOPRAM HYDROBROMIDE 10 MG TAB PO SCH (09:00)
[2021-07-13 11:49] LABS: Basophils % (A) 0 %; Eosinophils # (A) 0.1 k/uL (0-0.7); Eosinophils % (A) 1 %; HCT 32.6 % (34.0-46.0); HGB 10.8 gm/dL (11.4-16.0); Lymphocytes # (A) 2.5 k/uL (1.0-4.8); Lymphocytes % (A) 22 %; MCH 33.9 pg (25.0-35.0); MCHC 33.1 g/dL (31.0-37.0); MCV 102.4 fL (80.0-100.0); Mean Platelet Volume 10.3; Monocytes # (A) 0.6 k/uL (0-1.0); Monocytes % (A) 6 %; Neutrophils % (A) 71 %; Platelet Count 159 k/uL (150-450); RBC 3.18 m/uL (3.80-5.40); RDW 11.8 % (11.5-15.5); WBC 11.3 k/uL (3.8-10.6)
[2021-07-13 12:44] VITALS: BP 125/72; PULSE 75; RESP 17; TEMP 98.2
--- NOTE | 2021-07-13 16:41 | P.DS ---
Providers Attending physician: Anthony Almanza MD Primary care physician: Majo Dickson [facility] Course: 70 yo hx of left sided renal stone, underwent attempted left sided PCNL, please see op note dated 07/12 for surgery details. She was admitted to the hospital on post operatively. Chest x-ray post operatively showed pleural effusion which significantly improved on POD #1. She was discharged home on POD #1 with nephrostomy tube. At time of discharge she was tolerating diet, ambulating and pain was controlled. Plan - Discharge Summary Discharge Rx Participant: Yes New Discharge Prescriptions: New HYDROcodone/APAP 5-325MG [Prentiss 5-325] 1 tab PO Q6HR PRN 3 Days #8 tab PRN Reason: Pain Nitrofurantoin Monohyd/M-Cryst [Macrobid] 100 mg PO Q12HR #6 cap Ketorolac [Toradol] 10 mg PO Q6HR PRN #15 tab PRN Reason: Pain No Action Atorvastatin [Lipitor] 20 mg PO HS Ubidecarenone [Co Q-10] 100 mg PO DAILY Citalopram Hydrobromide [CeleXA] 10 mg PO DAILY Cholecalciferol [Vitamin D3] 1,000 unit PO DAILY Artificial Tears-Hypromellose [Artificial Tear Drops] 1 drop BOTH EYES DAILY Holy Basil Oil 1 dose PO DAILY Loperamide [Imodium] 2 mg PO PRN PRN Reason: Diarrhea Discharge Medication List Artificial Tears-Hypromellose [Artificial Tear Drops] 1 drop BOTH EYES DAILY 08/29/18 [History] Atorvastatin [Lipitor] 20 mg PO HS 08/29/18 [History] Cholecalciferol [Vitamin D3] 1,000 unit PO DAILY 08/29/18 [History] Citalopram Hydrobromide [CeleXA] 10 mg PO DAILY 08/29/18 [History] Ubidecarenone [Co Q-10] 100 mg PO DAILY 08/29/18 [History] Holy Basil Oil 1 dose PO DAILY 09/05/18 [History] Loperamide [Imodium] 2 mg PO PRN 07/12/21 [History] HYDROcodone/APAP 5-325MG [Prentiss 5-325] 1 tab PO Q6HR PRN 3 Days #8 tab 07/13/21 [Rx] Ketorolac [Toradol] 10 mg PO Q6HR PRN #15 tab 07/13/21 [Rx] Nitrofurantoin Monohyd/M-Cryst [Macrobid] 100 mg PO Q12HR #6 cap 07/13/21 [Rx] Follow up Appointment(s)/Referral(s): Anthony Almanza MD [STAFF PHYSICIAN] - 07/19/21 11:00 am Danny Oliva [NON-STAFF] - 1 Week ([facility]ENC[facility] WILL CONTACT YOU TO SET UP A SCHEDULE.) Patient Instructions/Handouts: Kidney Stones (DC), Nephrostomy Tube Care (DC) Activity/Diet/Wound Care/Special Instructions: Increase fluid intake You may see blood in the urine Change dressing daily around the tube No heavy lifting or straining Discharge Disposition: HOME SELF-CARE
== END 2021-07-13 15:38 | disposition home or self-care (01) ==
LOC: OR 09:25 → 5NMEDONC 14:27 → OR 07-13 15:38
PROVIDERS: ATTEND Urology
DX: N20.0 Calculus of kidney (principal); I95.9 Hypotension, unspecified; Z53.8 Procedure and treatment not carried out for other reasons; E78.5 Hyperlipidemia, unspecified; Z20.822 Contact with and (suspected) exposure to COVID-19; E27.40 Unspecified adrenocortical insufficiency; Z87.442 Personal history of urinary calculi; Z96.653 Presence of artificial knee joint, bilateral; Z98.890 Other specified postprocedural states
CPT/HCPCS: 86900; 86901; 80051; 85025; 85027; 86850; 87635; 50432; 71045 ×2; 74018; 50081; C2628; C1769 ×4; C1729 ×2; C1894; J2250; J1100; J2710; J0690; J2405; J2001; J3010; J1885 ×2; J2370; J0330; J2704; J1170; Q9967; J1644 ×2

== ENCOUNTER → 2021-07-28 | Outpatient (CLI) | payer MEDICARE, BC ==
--- NOTE | 2021-07-29 10:07 | US ---
EXAMINATION TYPE: US kidneys/renal and bladder DATE OF EXAM: 07/28/2021 COMPARISON: CT 12/18/2020 CLINICAL HISTORY: 70-year-old female N20.0 Calculus of kidney. Pt states history of renal calculi wit h failed left renal lithotripsy TECHNIQUE: Multiple sonographic images of the kidneys and bladder are obtained. FINDINGS: EXAM MEASUREMENTS: Right Kidney: 10.2 x 5.3 x 5.5 cm Left Kidney: 11.4 x 5.9 x 6.3 cm Right Kidney: Mild to moderate hydro, lower pole renal calculi= 1.0 cm Left Kidney: Mild to moderate hydro with 2 calculi at lower pole 1)=1.2 cm 2)= 1.1 cm. Exophytic cy stic structure mid= 2.7 x 2.4 x 3.8 cm. A fluid tract extends from here to the superficial region underlying the incision site. Bladder: Underdistention limits its evaluation. Bilateral Jets seen: Only right jet visualized . IMPRESSION: 1. Mild to moderate bilateral hydronephrosis. 2. Bilateral renal calculi measuring 1.0 cm on the right and two on the left measuring up to 1.2 cm. 3. A 3.8 cm cystic area along the lateral mid pole of the left kidney shows a fluid tract extending f rom here to the superficial soft tissues underlying the incision site. Possible small urinoma and jose or nephrostomy tract. Follow-up to ensure normal gradual involution. 4. The left ureteral jet was not visualized.
== END | disposition home or self-care (01) ==
LOC: RADUSWWP 15:53
PROVIDERS: ATTEND Urology
DX: N13.2 Hydronephrosis with renal and ureteral calculous obstruction (principal)
CPT/HCPCS: 76770

== ENCOUNTER → 2021-10-15 | Outpatient (CLI) | payer MEDICARE, BC ==
--- NOTE | 2021-10-15 15:50 | US ---
EXAMINATION TYPE: US kidneys/renal and bladder DATE OF EXAM: 10/15/2021 COMPARISON: CT December 18, 2020 CLINICAL HISTORY: N13.30 Hydronephrosis. Renal stones bilaterally. Patient stated had hematuria 3 wee ks ago. EXAM MEASUREMENTS: Right Kidney: 9.6 x 5.3 x 4.2 cm Left Kidney: 9.6 x 4.2 x 5.2 cm Post Void Residual Volume: 9.7 mL Right Kidney: couple of shadowing renal stones are seen again with mid medial stone = 0.8 x 0.7 x 0.4 cm and inferior stone = 0.7 x 0.6 x 0.5cm. Left Kidney: couple of shadowing irregular stones seen with medial inferior = 1.7 x 1.1 x 0.9cm and l ateral inferior = 0.8 x 0.7 x 0.5cm Bladder: mildy distended Bilateral Jets seen: yes Normal Post Void Residual: yes No right-sided hydronephrosis. Some nonobstructing right renal calculi redemonstrated. Bladder poorly distended and thus suboptimally evaluated. Bilateral distal ureter jets are seen. Nonobstructing lef t renal calculi redemonstrated. No obvious left-sided hydronephrosis. After voiding tiny amount of re sidual urine is present. IMPRESSION: Bilateral nonobstructing renal calculi redemonstrated. No hydronephrosis seen currently.
== END | disposition home or self-care (01) ==
LOC: RADUSWWP 14:59
PROVIDERS: ATTEND Urology
DX: N20.0 Calculus of kidney (principal); N13.30 Unspecified hydronephrosis
CPT/HCPCS: 76770

== ENCOUNTER → 2022-03-02 | Outpatient (CLI) | payer MEDICARE, BC ==
--- NOTE | 2022-03-02 09:19 | XR ---
EXAMINATION TYPE: XR KUB DATE OF EXAM: 03/02/2022 COMPARISON: 07/12/2021 HISTORY: Pain TECHNIQUE: One view abdominal series FINDINGS: The osseous structures are intact. The bowel gas pattern is nonspecific. There are 2 calcifications overlying the lower pole the right kidney measuring 6 mm. This is a 15 mm calcification overlying the lower pole left kidney. Surgical clips in the gallbladder fossa. Arthropathy involving the shoulders . Vascular calcifications pelvis. Scoliosis and multilevel degenerative disc disease.. IMPRESSION: 1. Bilateral nephrolithiasis.
== END | disposition home or self-care (01) ==
LOC: RADXRMAIN 08:38
PROVIDERS: ATTEND Urology
DX: N20.0 Calculus of kidney (principal)
CPT/HCPCS: 74018

== ENCOUNTER → 2023-03-14 | Outpatient (CLI) | payer MEDICARE, BC ==
--- NOTE | 2023-03-14 15:22 | XR ---
EXAMINATION TYPE: XR KUB DATE OF EXAM: 03/14/2023 COMPARISON: 10/25/2022 HISTORY: Pain TECHNIQUE: One view abdominal series FINDINGS: The osseous structures are intact. The bowel gas pattern is nonspecific. There is a scoliosis with diffuse osteopenia and multilevel degenerative change of the spine. Arthrop athy of the hips. Calcifications in the pelvic compare most likely vascular. 9 mm calcification previ ously noted overlying the right sacrum is no longer seen. Right kidney: Stable 7 mm lower pole right renal calculus. Left kidney: Stable 18 mm left renal pelvic calcification. Postcholecystectomy clips noted. IMPRESSION: 1. Bilateral nephrolithiasis is stable. 9 mm calcification overlying the right sacrum is no longer se en.
== END | disposition home or self-care (01) ==
LOC: RADXRMAIN 13:57
PROVIDERS: ATTEND Urology
DX: N20.0 Calculus of kidney (principal); N28.89 Other specified disorders of kidney and ureter
CPT/HCPCS: 74018

== ENCOUNTER → 2023-10-23 | Outpatient (CLI) | payer MEDICARE, BC ==
--- NOTE | 2023-10-23 18:23 | XR ---
EXAMINATION TYPE: XR KUB DATE OF EXAM: 10/23/2023 Comparison: 03/14/2023 Clinical History: 73-year-old female N20.1 Calculus ureter Findings: 8 mm right renal calculus. 1.8 cm left renal calculus. Cholecystectomy clips. Numerous pelvic phlebol ith. Slight S-shaped scoliotic curvature lumbar spine. Scattered mild stool. Nonobstructive bowel gas pattern. Impression: Redemonstrated 1.8 cm left renal calculus and 8 mm on the right.
== END | disposition home or self-care (01) ==
LOC: RADXRMAIN 13:31
PROVIDERS: ATTEND Urology
DX: N20.1 Calculus of ureter (principal)
CPT/HCPCS: 74018

== ENCOUNTER → 2023-10-30 | Outpatient (CLI) | payer MEDICARE, BC ==
[2023-10-31 02:32] LABS: Basophils # (A) 0.07 X 10*3/uL (0.00-0.10); Basophils % (A) 0.8 %; Eosinophils # (A) 0.21 X 10*3/uL (0.04-0.35); Eosinophils % (A) 2.4 %; HCT 41.4 % (37.2-46.3); HGB 13.1 g/dL (12.0-15.0); Lymphocytes # (A) 3.09 X 10*3/uL (0.90-5.00); MCH 31.8 pg (27.0-32.0); MCHC 31.6 g/dL (32.0-37.0); MCV 100.5 FL (80.0-97.0); Mean Platelet Volume 12.4 FL (9.5-12.2); Monocytes # (A) 0.85 X 10*3/uL (0.20-1.00); Monocytes % (A) 9.6 %; NRBC Per 100 WBC 0 X 10*3/uL (0.00-0.01); Platelet Count 128 X 10*3/uL (140-440); RBC 4.12 X 10*6/uL (4.10-5.20); RDW 11.8 % (11.5-14.5); WBC 8.84 X 10*3/uL (4.50-10.00)
[2023-10-31 02:40] LABS: BUN/Creat Ratio 19.78 Ratio (12.00-20.00); Blood Urea Nitrogen 17.8 mg/dL (9.0-27.0); Calcium 9.8 mg/dL (8.7-10.3); Carbon Dioxide 24.7 mmol/L (21.6-31.8); Chloride 103 mmol/L (96-109); Glucose 93 mg/dL (70-110); Potassium 4.4 mmol/L (3.5-5.5); Sodium 139 mmol/L (135-145)
[2023-10-31 04:09] LABS: Appearance,Urine Clear (Clear); Bilirubin,Urine Negative (Negative); Blood,Urine Moderate (Negative); Color,Urine Yellow (Yellow); Ketones,Urine Trace (Negative); Nitrite,Urine Negative (Negative); PH, Urine 5.5; Specific Gravity,Urine 1.023 (1.001-1.030)
[2023-10-31 04:50] LABS: Bacteria,Urine None Seen (None Seen)
== END | disposition home or self-care (01) ==
LOC: LABPAT 16:26
PROVIDERS: ATTEND Urology
DX: Z01.812 Encounter for preprocedural laboratory examination (principal); N20.0 Calculus of kidney
CPT/HCPCS: 80048; 81001; 85025; 87086

== ENCOUNTER 2023-11-07 10:45 | Day surgery (SDC) | payer MEDICARE, BC ==
--- NOTE | 2023-11-07 08:25 | P.HPIHPCON ---
History of Present Illness H&P Date: 11/07/23 Chief Complaint: Right renal stone This is a 73-year-old female with history of a 8 mm right sided lower pole renal stone, she is having symptomatic flank pain secondary to her stone. She does have a history of ESWL in the past which failed to fragment the stones. Discussed with her the option of a right-sided ureteroscopy with holmium laser. Discussed the risk which includes but not limited to bleeding, infection, injury to the ureter. Discussed the potential that she might have pain even with stone removal. She understood all the risk and agreed to proceed Consent for Procedure: I have explained the operation/procedure to the patient, including the risks, benefits, side effects, alternative therapies (including not receiving the proposed treatment or service), the likelihood of the patient achieving his/her goals, and potential recuperation problems for the procedure/sedation/analgesia, as well as any blood products, if indicated. I also explained to the patient the risks, benefits and side effects of the alternatives, as well as the risks related to not receiving the proposed procedure, care, treatment, or services. Past Medical History Past Medical History: Hyperlipidemia, Liver Disease, Renal Disease Additional Past Medical History / Comment(s): kidney stones, renal insufficiency. hx hepatitis as child (unknown type). hx vertigo History of Any Multi-Drug Resistant Organisms: None Reported Past Surgical History: Bladder Surgery, Cholecystectomy, Joint Replacement, Orthopedic Surgery Additional Past Surgical History / Comment(s): janet knee replacement, bladder sling, lithotripsy x 2 Past Anesthesia/Blood Transfusion Reactions: No Reported Reaction, Motion Sickness Additional Past Anesthesia/Blood Transfusion Reaction / Comment(s): hx vertigo Smoking Status: Never smoker - Past Family History Mother Family Medical History: Cancer Brother(s) Family Medical History: Coronary Artery Disease (CAD) Father Family Medical History: COPD Medications and Allergies Home Medications Medication Instructions Recorded Confirmed Type Atorvastatin [Lipitor] 20 mg PO HS 08/29/18 11/01/23 History Citalopram Hydrobromide [CeleXA] 20 mg PO HS 08/29/18 11/01/23 History Ubidecarenone [Co Q-10] 100 mg PO HS 08/29/18 11/01/23 History Holy Basil Oil 1 dose PO DAILY 09/05/18 11/01/23 History Cholecalciferol (Vitamin D3) 75 mcg PO HS 10/21/22 11/01/23 History [Vitamin D3 (3000 Iu)] Acetaminophen Tab [Tylenol Tab] 1,000 mg PO Q6HR PRN 11/01/23 11/01/23 History B12/Methyltetrahydrofolate/B6 1 each PO DAILY 11/01/23 11/01/23 History [Methyl B-12 and Folate Chew Tb] Calcium Carbonate/Vitamin D3 1 each PO DAILY 11/01/23 11/01/23 History [Calcium 500 mg-Vit D3 5 mcg (200 Unit)] Meclizine [Antivert] 25 mg PO DAILY PRN 11/01/23 11/01/23 History Allergies Allergy/AdvReac Type Severity Reaction Status Date / Time Sulfa (Sulfonamide Allergy Rash/Hives Verified 11/01/23 13:33 Antibiotics) ibuprofen [From Motrin] AdvReac Nausea Verified 11/01/23 13:33 Surgical - Exam - General no distress, moderate pain - Eyes normal ocular movement, no pale - ENT normal nares, normal mucosa - Respiratory normal expansion, normal respiratory effort Assessment and Plan Assessment: OR for right-sided ureteroscopy, holmium laser lithotripsy, stone basketing and stent insertion
[~2023-11-07 10:45] MED LIST changes: -DEXAMETHASONE SOD PHOSPHATE 4 MG/ML 1 ML VIAL IV ONE; -LIDOCAINE 1% (10MG/ML) FOR IV START INTRADERMA PRN; +METOCLOPRAMIDE 5 MG/ML 2 ML VIAL IVP PRN; -MIDAZOLAM 2 MG/2 ML VIAL IV PRN; -ONDANSETRON 4 MG/2 ML VIAL IVP ONE
--- NOTE | 2023-11-07 11:21 | XR ---
EXAMINATION TYPE: XR KUB DATE OF EXAM: 11/07/2023 11:00 AM CLINICAL INDICATION:Female, 73 years old with history of N20.0 right renal stone; COMPARISON: 10/23/2023. TECHNIQUE: One radiographic view of the abdomen was obtained. FINDINGS: Bilateral renal calculi measuring up to 19 mm and left and 9 mm in the right. The bowel gas pattern is nonspecific without dilated loops of small or large bowel. There is no evidence for organ omegaly or pneumoperitoneum. The osseous structures are intact. No abnormal calcifications are pres ent. Fecal material and gas are demonstrated throughout the colon and rectum. Multilevel degeneration changes spine. Mild osteoporosis changes of the hips. IMPRESSION: 1. Bilateral renal calculi. 2. Nonspecific bowel gas pattern without radiographic evidence for acute process.
[2023-11-07] MEDS: LIDOCAINE 1% (10MG/ML) FOR IV START INTRADERMA PRN (11:54)
[2023-11-07] MEDS: LACTATED RINGERS 1,000 ML IV SCH (11:55)
[2023-11-07] MEDS: DEXAMETHASONE SOD PHOSPHATE 4 MG/ML 1 ML VIAL IV ONE (11:55)
[2023-11-07] MEDS: ONDANSETRON 4 MG/2 ML VIAL IVP ONE (11:56)
[2023-11-07] MEDS ORDERED: MIDAZOLAM 2 MG/2 ML VIAL ONE (13:39)
[2023-11-07] MEDS ORDERED: ePHEDrine 50 MG/ML 1 ML VIAL ONE (13:39)
[2023-11-07] MEDS ORDERED: fentaNYL (PF) 50 MCG/ML 2 ML AMP ONE (13:39)
[2023-11-07] MEDS ORDERED: PROPOFOL 10 MG/ML 20 ML VIAL IV ONE (13:39)
[2023-11-07 14:39] VITALS: TEMP 97.1
--- NOTE | 2023-11-07 14:51 | P.OP ---
Date of Procedure: 11/07/23 Preoperative Diagnosis: Right renal stone Postoperative Diagnosis: same Procedure(s) Performed: Cystoscopy, right ureteroscopy, holmium laser lithotripsy, stone basketing and stent insertion Implants: 6 [place] by 24 cm stent in the right ureter Anesthesia: REKHA Surgeon: Anthoyn Almanza Estimated Blood Loss (ml): 5 Pathology: other (right renal stone) Condition: stable Disposition: PACU Indications for Procedure: This is a 73-year-old female with history of a 8 mm right sided lower pole renal stone, she is having symptomatic flank pain secondary to her stone. She does have a history of ESWL in the past which failed to fragment the stones. Discussed with her the option of a right-sided ureteroscopy with holmium laser. Discussed the risk which includes but not limited to bleeding, infection, injury to the ureter. Discussed the potential that she might have pain even with stone removal. She understood all the risk and agreed to proceed Operative Findings: Large stone in the lower pole Description of Procedure: Patient brought to the operating room, general anesthesia was induced. She was prepped and draped in sterile fashion placed in dorsolithotomy position. Cystoscopy through the 21 [place] sheath was inserted per urethra, cystoscopy was performed which showed no abnormality within the bladder. Attention was then carried to the right ureteral orifice which was intubated with a sensor wire. Next an 1113 [place] access sheath was passed over the wire and into the proximal ureter under fluoroscopy. Next a flexible ureteroscope was inserted through the access sheath, renoscopy was performed which showed a large stone within the lower pole. Using the holmium laser the stone was dusted, sizable stone fragments were removed using the stone basket. Repeat renoscopy showed no sizable stones or injury to the kidney, on fluoroscopy there was no radiopaque densities. At this time pullback ureteroscopy was performed and showed no injury to the ureter or any ureteral stones, as ureteroscope was withdrawn and a sensor wire was advanced through. Next a ureteral stent was passed over the wire, the proximal curl was visualized under fluoroscopy and the distal curl was visualized using the cystoscope. The bladder was emptied at the end of the case. Patient tolerated procedure well was taken to recovery in stable condition
[2023-11-07 15:11] VITALS: PULSE 101
[2023-11-07 15:43] VITALS: BP 137/75; RESP 16
[2023-11-07] MEDS: LACTATED RINGERS 1,000 ML IV ONE (15:44)
--- NOTE | 2023-11-07 15:54 | FL ---
EXAMINATION TYPE: FL guidance operating room DATE OF EXAM: 11/07/2023 Comparison: None Clinical History: 73-year-old female CYSTO LITHO RIGHT Findings: Cysto with Rahbar. 9 sec fluoro time. .97082 Gycm2 DAP. 1 image saved
== END 2023-11-07 16:01 | disposition home or self-care (01) ==
LOC: OR 10:45
PROVIDERS: ATTEND Urology
DX: N20.0 Calculus of kidney (principal); Z87.442 Personal history of urinary calculi
CPT/HCPCS: 52356; 82365; 74018; C2625; C1769; J2250; J1100; J0690; J2405; J3010; J2704

== ENCOUNTER → 2023-12-27 | Outpatient (CLI) | payer MEDICARE ==
--- NOTE | 2023-12-28 14:23 | MM ---
Reason for Exam: Screening (asymptomatic). Last mammogram was performed 1 year(s) and 1 month(s) ago. Patient History: Menarche at age 13. First Full-Term at age 28. Late child-bearing (after 28). Postmenopausal. Patient has history of breast feeding. Estrogen for 7 years from age 55 until age 62. Progesterone for 7 years from age 55 until age 62. Patient used Hormonal Contraceptives for 15 years. Benign Cyst Aspiration on the right side. Benign Cyst Aspiration on the left side. Benign Cyst Aspiration on the left side. Mother had breast cancer, age 93. Risk Values: Yana 5 year model risk: 3.3%. NCI Lifetime model risk: 7.0%. Prior Study Comparison: 12/06/2018 Bilateral Screening Mammogram, [facility]. 06/01/2021 Bilateral Screening Mammogram, [facility]. 11/24/2022 Bilateral MG 3D screening mammo w/cad, [facility]. Tissue Density: The breasts are heterogeneously dense, which may obscure small masses. Findings: Analyzed By CAD. Right breast: There is no suspicious group of microcalcifications or new suspicious mass. Left breast: There is no suspicious group of microcalcifications or new suspicious mass. Overall Assessment: Negative, BI-RAD 1 Management: Screening Mammogram of both breasts in [address] [facility] will attempt to contact patient to return for supplemental views and ultrasound if indicated. Patient should continue monthly self-breast exams. A clinical breast exam by your physician is recommended on an annual basis. This exam should not preclude additional follow-up of suspicious palpable abnormalities. Note on Yana scores and lifetime risk: 1. A Yana score greater than 3% is considered moderate risk. If this is the case, consider specialist referral to assess eligibility for a risk reducing agent. 2. If overall lifetime risk for the development of breast cancer is 20% or higher, the patient may qualify for future screening with alternating mammogram and breast MRI. Electronically signed and approved by: Lefty Franco DO
== END | disposition home or self-care (01) ==
LOC: RADMAMWWP 13:21
PROVIDERS: ATTEND Family Medicine
DX: Z12.31 Encounter for screening mammogram for malignant neoplasm of breast (principal); Z78.0 Asymptomatic menopausal state; Z80.3 Family history of malignant neoplasm of breast
CPT/HCPCS: 77063; 77067

== ENCOUNTER → 2024-04-05 | Outpatient (CLI) | payer MEDICARE ==
[~2024-04-05] MED LIST changes: -HYDROmorphone 0.5 MG/0.5 ML SYRINGE IVP PRN; -METOCLOPRAMIDE 5 MG/ML 2 ML VIAL IVP PRN; +REGADENOSON 0.4 MG/5 ML SYRINGE IV ONE
--- NOTE | 2024-04-05 13:35 | NM ---
EXAMINATION TYPE: NM stress lexiscan cardiolite DATE OF EXAM: 04/05/2024 COMPARISON: NONE CLINICAL INDICATION: Female, 73 years old with history of I20.89 OTHER FORMS OF ANGINA PECTORIS; TECHNIQUE: After the intravenous administration of 9.8 mCi Tc 99m Sestamibi - Cardiolite resting SPE CT images acquired 45 minutes post injection. The patient received 0.4mg Lexiscan, 24.2 mCi Tc 99m Sestamibi - Stress images obtained [address] injection FINDINGS: Review of stress and rest SPECT images demonstrates no distinct perfusion abnormality. Gated analysi s shows normal wall motion with an estimated left ventricular ejection fraction of 72 %. TID is calc ulated at 1.08, upper limits of normal. IMPRESSION: No scintigraphic evidence for reversible ischemia.
--- NOTE | 2024-04-05 15:43 | CA ---
Lexiscan Nuclear Stress Test Report Name: Lillie Rey Exam Date: 04/05/2024 10:47 Exam Location: [facility] Ht (in): 65 Wt (lb): 126 BSA: 1.63 Ordering Phys: rBie Naranjo MD Referring Phys: BRIE NARANJO Technologist: Hernando Nava Age: 73 Gender: F : 1950 Procedure CPT: Indications: I20.89 OTHER FORMS OF ANGINA PECTORIS ICD-10 Codes: Patient History: HTN, HYPERCHOLESTEROLEMIA, FAMILY HX OF HEART DISEASE, COPD Medications: ATORVASTATIN, CYTALOPRAM, VIT B12, C, D Meds past 24 hrs: Pretest Chest Pain: STRESS TEST Lexiscan Protocol Exercise Duration (min:sec): 01:[address] Depressions (mm): Angina Score: Pulido Score: Resting HR (bpm): 66 Peak HR (bpm): 87 Resting BP (mmHg): 165 / 85 Peak BP (mmHg): 165 / 85 MPHR: 145 Target HR: 123 % MPHR: 60 METS: 1.0 Total Dose: Peak Dose: Atropine: Double Product: 46818 BP Response: Stress Termination: INFUSION COMPLETE Stress Symptoms: CHEST PRESSURE Stress Summary: ECG ANALYSIS Resting ECG: Stress ECG: CONCLUSIONS At baseline EKG showed normal sinus rhythm, normal axis, no significant ST or T wave abnormalities. Patient recieved IV infusion of Lexiscan 0.4mg and at peak infusion EKG showed no significant change from baseline. Conclusions: 1. Normal EKG response to Lexiscan infusion 2. Nuclear imaging to be reported separately. Dr. Saman Hinkle DO (Electronically Signed) Final Date: 05 April 2024 15:42
== END | disposition home or self-care (01) ==
LOC: RADNMMAIN 08:26
PROVIDERS: ATTEND Family Medicine
DX: I20.89 Other forms of angina pectoris (principal); R94.01 Abnormal electroencephalogram [EEG]
CPT/HCPCS: 93017; 78452; A9500; J2785

== ENCOUNTER → 2025-02-12 | Outpatient (CLI) | payer MEDICARE, BC ==
--- NOTE | 2025-02-12 10:33 | MM ---
Reason for Exam: Screening (asymptomatic). Last mammogram was performed 1 year(s) and 1 month(s) ago. Patient History: Menarche at age 13. First Full-Term at age 28. Late child-bearing (after 28). Postmenopausal. Patient has history of breast feeding. Estrogen for 7 years from age 55 until age 62. Progesterone for 7 years from age 55 until age 62. Patient used Hormonal Contraceptives for 15 years. Benign Cyst Aspiration on the right side. Benign Cyst Aspiration on the left side. Benign Cyst Aspiration on the left side. Mother had breast cancer, age 93. Risk Values: Yana 5 year model risk: 3.2%. NCI Lifetime model risk: 6.5%. Prior Study Comparison: 06/01/2021 Bilateral Screening Mammogram, [facility]. 11/24/2022 Bilateral MG 3D screening mammo w/cad, [facility]. 12/27/2023 Bilateral MG 3D screening mammo w/cad, [facility]. Tissue Density: The breasts are heterogeneously dense, which may obscure small masses. Findings: Analyzed By CAD. Right breast: There is no suspicious group of microcalcifications or new suspicious mass. Benign-appearing calcifications right breast. Left breast: There is no suspicious group of microcalcifications or new suspicious mass. Benign-appearing calcifications left breast. Overall Assessment: Benign, BI-RAD 2 Management: Screening Mammogram of both breasts in [address] [facility] will attempt to contact patient to return for supplemental views and ultrasound if indicated. Patient should continue monthly self-breast exams. A clinical breast exam by your physician is recommended on an annual basis. This exam should not preclude additional follow-up of suspicious palpable abnormalities. Note on Yana scores and lifetime risk: 1. A Yana score greater than 3% is considered moderate risk. If this is the case, consider specialist referral to assess eligibility for a risk reducing agent. 2. If overall lifetime risk for the development of breast cancer is 20% or higher, the patient may qualify for future screening with alternating mammogram and breast MRI. [facility], , 02/12/2025 10:30 AM. Electronically signed and approved by: Lefty Franco DO
== END | disposition home or self-care (01) ==
LOC: RADMAMWWP 09:48
PROVIDERS: ATTEND Family Medicine
DX: Z12.31 Encounter for screening mammogram for malignant neoplasm of breast (principal); R92.333 Mammographic heterogeneous density, bilateral breasts; Z78.0 Asymptomatic menopausal state; Z92.0 Personal history of contraception; Z80.3 Family history of malignant neoplasm of breast
CPT/HCPCS: 77063; 77067